=== PATIENT | female | born 1960 | race Caucasian/White ===

== ENCOUNTER → 2016-08-15 | Outpatient (CLI) | payer OTHER ==
--- NOTE | 2016-08-16 11:27 | MRI ---
EXAM DESCRIPTION: Cervical Spine CLINICAL HISTORY: RADICULOPATHY COMPARISON: Plain film examination May 06, 2007, CT examination May 06, 2007 TECHNIQUE: MRI of the cervical spine is performed according to our usual protocol. FINDINGS: Reversal of the normal lordosis centered at C4-5 with estimated 3 mm of anterior subluxation of C4 on C5 is evident and very minimally more prominent with greater angulation than prior 2008 CT examination. Anterior degenerative spurring at C5-6 and to a lesser extent C6-7 is noted. Susceptibility artifact suggest instrumentation of the spine posteriorly at this level. No significant posterior encroachment upon the canal is noted. No intradural or intramedullary mass or gliosis is evident and the paraspinous regions are unremarkable. The foramen magnum and C1-2 articulation is normal. C2-3: the disc is well hydrated. There is no loss of height. There is no bulging. The facets are unremarkable with no significant hypertrophy. There is no stenosis or impingement. C3-4: Normal disc contour with adequate canal and neural foramina. Susceptibility artifact posteriorly at the mid C3 level suggests internal fixation beginning at this point. C4-5: 3 mm of anterior subluxation of the spine in flexion at this point, slightly increased from preoperative 2008 CT imaging. Susceptibility artifact from internal fixation hardware posterior laterally on each side is noted at this level with adequate spinal canal and no significant disc bulge. Foramina are distorted by the subluxation and flexion but a distinct herniation or mass is not apparent C5-6: Degenerative disc with anterior spurring and mild annular prominence posteriorly with AP diameter of the canal lower range of normal and susceptibility artifact posteriorly consistent with internal fixation. 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 No malalignment seen. C7-T1: Normal disc contour and adequate canal without lateralizing herniation. IMPRESSION: 1. Interval internal fixation from the mid C3 level to the upper C6 level with slight increase in flexion of the spine and approximately 3 mm of anterolisthesis of C4 on C5 in comparison to remote [address] examination. 2. Multilevel disc degeneration and annular bulges without severe stenosis in either any level with borderline or mild AP diameter canal stenosis on a degenerative basis at C6-7 and C5-6 but adequate decompression at the subluxed C4-5 level. 3. No acute new injuries are noted essentially normal examination in the upper cervical spine. Electronically signed by: Norbert Mercado MD 08/16/2016 11:26 AM CDT
== END ==
LOC: MRI 08:09
PROVIDERS: ATTEND Family Medicine
DX: M50.122 Cervical disc disorder at C5-C6 level with radiculopathy (principal); M50.123 Cervical disc disorder at C6-C7 level with radiculopathy

== ENCOUNTER → 2016-10-02 | Outpatient (CLI) | payer OTHER ==
--- NOTE | 2016-10-02 17:18 | CT ---
EXAM DESCRIPTION: Head CLINICAL HISTORY: LOSS OF CONSCIOUSNESS, SYNCOPE COMPARISON: None available TECHNIQUE: Non contrast cranial CT This exam was performed according to our departmental dose-optimization program, which includes automated exposure control, adjustment of the mA and/or kV according to patient size and/or use of iterative reconstruction technique. FINDINGS: Ventricles and sulci are unremarkable. There is no hemorrhage or mass. No subdural hematoma noted and no subarachnoid hemorrhage seen. There are no white matter abnormalities detected. The calvarium is unremarkable. The visualized paranasal sinuses and the mastoids are clear. Benign calcifications in the basal ganglia are noted symmetrically. IMPRESSION: 1. Normal CT head Electronically signed by: Norbert Mercado MD 10/02/2016 5:17 PM CDT
== END | disposition home or self-care (01) ==
LOC: CT 08:29
PROVIDERS: ATTEND Nurse Practitioner Acute Care
DX: R55 Syncope and collapse (principal)

== ENCOUNTER → 2016-10-24 | Outpatient (CLI) | payer OTHER ==
--- NOTE | 2016-10-25 09:07 | RAD ---
EXAM DESCRIPTION: Hand,Left 3 Views CLINICAL HISTORY: 56 years Female, PAIN IN LEFT HAND COMPARISON: None. FINDINGS: There is no acute fracture or malalignment. The joint spaces are well maintained, and there is no lytic or sclerotic bone lesion. There is no radiopaque foreign body or soft tissue gas. IMPRESSION: Negative exam. Electronically signed by: Jesse Bolden MD 10/25/2016 9:06 AM CDT
--- NOTE | 2016-10-25 09:10 | RAD ---
EXAM DESCRIPTION: Hand,Right 3 Views CLINICAL HISTORY: 56 years Female, PAIN IN RIGHT HAND COMPARISON: None. FINDINGS: 3 views of the right hand show no acute fracture or malalignment. No joint space narrowing or productive change. No focal bone lesion or periosteal reaction. The soft tissues are unremarkable. IMPRESSION: Negative exam. Electronically signed by: Jesse Bolden MD 10/25/2016 9:09 AM CDT
== END | disposition home or self-care (01) ==
LOC: RAD 08:30
PROVIDERS: ATTEND Orthopaedic Surgery
DX: M79.641 Pain in right hand (principal); M79.642 Pain in left hand; Z01.818 Encounter for other preprocedural examination

== ENCOUNTER 2016-11-06 06:25 | Day surgery (SDC) | payer OTHER ==
[~2016-11-06 06:25] MED LIST: LACTATED RINGERS 1,000 ML ONE; SODIUM CHL 0.9% 100ML MINI-BAG 100 ML IVPB ONE; ceFAZolin SODIUM 1 GM VIAL ONE
[2016-11-06] MEDS ORDERED: PROPOFOL 200 MG/20 ML VIAL IV ONE (09:00)
[2016-11-06] MEDS ORDERED: LIDOCAINE 1% 10 ML VIAL INJ ONE (09:00)
[2016-11-06] MEDS ORDERED: LIDOCAINE 1% 50 ML VIAL INJ ONE (12:33)
[2016-11-06] MEDS ORDERED: fentaNYL CITRATE INJ 50 MCG/ML AMP ONE (12:33)
[2016-11-06] MEDS ORDERED: BUPIVACAINE 0.25% INJ 30 ML VIAL INJ ONE (12:33)
[2016-11-06] MEDS ORDERED: MIDAZOLAM INJ 5 MG/5 ML VIAL ONE (12:33)
[2016-11-06] MEDS ORDERED: ceFAZolin SODIUM 1 GM VIAL ONE (12:34)
[2016-11-06] MEDS ORDERED: VANCOMYCIN HCL INJ 1,000 MG VIAL IVPB ONE ×2 (12:34→12:59)
[2016-11-06 14:56] VITALS: BP 132/78; TEMP 96.7; O2SAT 99
--- NOTE | 2016-11-07 08:41 | OP ---
DATE OF PROCEDURE: 11/06/16 PREOPERATIVE DIAGNOSIS: 1. Carpal tunnel syndrome. POSTOPERATIVE DIAGNOSIS: 1. Carpal tunnel syndrome. PROCEDURE: 1. Carpal tunnel release. SURGEON: Luis Fonseca MD. TRANSIT MIXER DRIVER: Ronald Quinones CST, SA-Emily. ANESTHESIA: Local with sedation. COMPLICATIONS: None. FINDINGS: Thickening of the transverse carpal ligament. INDICATION: The patient has a history of symptoms consistent with carpal tunnel syndrome. She has EMG confirmation of her carpal tunnel syndrome. Because of her ongoing symptoms, she has requested operative intervention. After discussing the risks, benefits and alternatives to that, the patient has given informed consent for carpal tunnel release. PROCEDURE: The patient was brought to the Operating Room and placed in the supine position. Sedation was administered and local anesthetic was injected into the operative area under sterile conditions. After the injection of anesthetic, the arm was sterilely prepped and draped. A longitudinal incision was made directly overlying the transverse carpal ligament and blunt dissection was carried down to the ligament. The transverse carpal ligament was sharply transected along its length and a Wilmerding elevator was used to ensure complete release of the ligament. Once release had been confirmed, the wound was thoroughly irrigated and the wound was closed with Nylon suture. A sterile dressing was placed and the patient was taken to the Day Surgery Unit. POSTOPERATIVE INSTRUCTIONS: The patient has been encouraged to do range of motion of the digits and will followup with us in two days. #[id number] [facility]
== END 2016-11-06 13:50 | disposition home or self-care (01) ==
LOC: AMB 06:25
PROVIDERS: ATTEND Orthopaedic Surgery
DX: G56.02 Carpal tunnel syndrome, left upper limb (principal); F17.210 Nicotine dependence, cigarettes, uncomplicated; J45.909 Unspecified asthma, uncomplicated; E66.9 Obesity, unspecified; F90.9 Attention-deficit hyperactivity disorder, unspecified type; F32.9 Major depressive disorder, single episode, unspecified; Z88.0 Allergy status to penicillin; Z79.899 Other long term (current) drug therapy
CPT/HCPCS: 01810; 64721; J0690; J2250; J3010; J3370; J3490; J7050; J7120

== ENCOUNTER → 2017-12-09 | Outpatient (CLI) | payer OTHER | LOC: GMAM 11:23 | PROVIDERS: ATTEND Family Medicine | DX: R07.2 Precordial pain (principal) ==

== ENCOUNTER → 2017-12-12 | Outpatient (CLI) | payer OTHER ==
--- NOTE | 2017-12-12 14:23 | US ---
EXAM DESCRIPTION: Gall Bladder CLINICAL HISTORY: ELEVATED LFT'S COMPARISON: None available. FINDINGS: This report is based on the review of 35 ultrasound images. Aorta: Not well-visualized. IVC: Not well visualized. Ascites: None. Pancreas: Partially obscured by overlying bowel gas but visualized portions normal. Liver: The liver is diffusely hyperechoic and at the upper limits of normal size, measuring 16 cm in length. No mass or other focal liver lesion is identified. No intrahepatic biliary duct dilation. Physiologic flow is noted in the main portal vein. Gallbladder/Common Duct: No stones, wall thickening, pericholecystic fluid or common duct dilation. The common duct measures 5 mm diameter at the marisol hepatis. Right Kidney: Seen only on one image. Visualized portions are unremarkable, but the inferior and superior poles are not well evaluated. IMPRESSION: Slightly limited exam as detailed above with diffuse fatty infiltration of the liver, but no additional abnormality to explain patient's symptoms. Electronically signed by: Jesse Bolden MD 12/12/2017 2:22 PM CDT
== END ==
LOC: US 11:07
PROVIDERS: ATTEND Family Medicine
DX: R94.5 Abnormal results of liver function studies (principal); K76.0 Fatty (change of) liver, not elsewhere classified

== ENCOUNTER → 2017-12-17 | Outpatient (CLI) | payer OTHER | LOC: GMAM 10:44 | PROVIDERS: ATTEND Family Medicine | DX: K76.0 Fatty (change of) liver, not elsewhere classified (principal) ==

== ENCOUNTER → 2018-01-01 | Outpatient (CLI) | payer OTHER ==
--- NOTE | 2018-01-01 15:04 | CT ---
Procedure: CT LUNG SCREENING Exam Date: 01/01/2018. Ordering Provider: Ruben Mcclure Clinical Indication: HX OF TOBACCO USE. Started in early age, quit for 10 years, now smoking again. This patient meets eligibility criteria for low-dose CT lung cancer screening. Comparison: No prior chest CT scans for comparison. Technique: Using a multislice scanner, sequential helical axial imaging was obtained in the thorax, 2.5 mm thickness, 2.5 mm separation, from the level of the thoracic inlet through the lung bases without IV contrast. A low dose protocol was utilized: CTDI: 1.75 mGy. 120. kVp. 45 mA. 2D sagittal and coronal reconstructed images, 6.0 mm thickness, were obtained. This exam was performed according to our departmental dose optimization program which includes use of automated exposure control, adjustment of the mA and/or kV according to patient size and/or use of iterative reconstruction technique. Nodule measurements under 10 mm are given as mean value of 3 axes diameters. FINDINGS: Lungs and large airways: No abnormal nodules are clinically significant nodules. No masses or infiltrates bilaterally. No significant emphysematous changes. Pleura: No abnormal pleural thickening. No effusion or pneumothorax bilaterally. No calcifications. Mediastinum and evi: evaluation limited by low dose technique and lack of IV contrast. No large soft tissue masses or enlarged lymph nodes Heart and great vessels: Minimal atherosclerotic calcification on the aorta. No significant coronary artery calcification. Chest wall, lower neck, axillae: Evaluation also limited by same factors as described above. Small axillary lymph nodes. No large soft tissue masses or enlarged lymph nodes. Upper abdomen: No fluid in the included peritoneal space. Normal size and density of the adrenal glands and spleen. Bones: Evaluation limited by low dose MIP technique. Minimal spondylosis at some levels. IMPRESSION: No abnormal nodules or clinically significant nodules seen bilaterally. No infiltrates or masses. No abnormal pleural thickening pleural effusion or pneumothorax.. [facility] Best Practice recommendations utilizing lung RADS screening criteria for imaging follow-up: [address] low dose follow-up. Please see below for Lung RADS category and FOLLOW-UP.* *Lung RADS category Category 1 - No nodule or definitely benign nodules (probability of malignancy less than 1%). Follow-up: Continue annual screening with Low Dose Chest CT in 12 months. Electronically signed by: Ronald Yanes MD 01/01/2018 3:03 PM CDT
== END ==
LOC: CT 10:00
PROVIDERS: ATTEND Family Medicine
DX: Z87.891 Personal history of nicotine dependence (principal)

== ENCOUNTER → 2019-08-11 | Outpatient (CLI) | payer OTHER ==
--- NOTE | 2019-08-12 11:00 | CT ---
Procedure: CT LUNG SCREENING Exam Date: August 11, 2019. Ordering Provider: Norbert Washington Clinical Indication: PERSONAL HISTORY OF NICOTINE DEPENDENCE current cigarette smoker. 5 pack years. This patient meets eligibility criteria for low-dose CT lung cancer screening. Comparison: Low-dose CT lung cancer screening examination January 2018. Technique: Using a multislice scanner, sequential helical axial imaging was obtained in the thorax, 2.5 mm thickness, 2.5 mm separation, from the level of the thoracic inlet through the lung bases without IV contrast. A low dose protocol was utilized for BMI greater than 30: BMI: 41.5. CTDI: 2.91 mGy. 120. kVp. 75 mA. DLP 102 mGy-cm. 2D sagittal and coronal reconstructed images, 6.0 mm thickness, were obtained. This exam was performed according to our departmental dose optimization program which includes use of automated exposure control, adjustment of the mA and/or kV according to patient size and/or use of iterative reconstruction technique. Nodule measurements under 10 mm are given as mean value of 3 axes diameters. FINDINGS: Lungs and large airways: Minimal pleural-parenchymal scarring in the base of the right middle lobe and inferior lingula. No abnormal nodules and no new masses. No focal infiltrates. Pleura and space: Negative. Mediastinum and evi: evaluation limited by low dose technique and lack of IV contrast. Normal size nodes but no dominant soft tissue mass. Heart and great vessels: Normal contour with no atherosclerotic calcifications. Chest wall, lower neck, axillae: Evaluation also limited by same factors as described above. Unremarkable. Upper abdomen: Evaluation limited by low-dose technique. No free air or free fluid. Included spleen and adrenal glands are negative. Osseous structures: Evaluation limited by low dose MIP technique. Unremarkable. IMPRESSION: Minimal pleural parenchymal scarring. No abnormal nodules and no masses. No focal infiltrates.. [facility] Best Practice Recommendations: please see below for Lung RADS category and FOLLOW-UP.* *Lung RADS category Category 1 - No nodule or definitely benign nodules (probability of malignancy less than 1%). Follow-up: Continue annual screening with Low Dose Chest CT in 12 months. Electronically signed by: Ronald Yanes MD 08/12/2019 10:10 AM CDT
== END ==
LOC: CT 10:30
PROVIDERS: ATTEND Family Medicine
DX: Z87.891 Personal history of nicotine dependence (principal); J98.4 Other disorders of lung